=== PATIENT | female | born 1975 | race Caucasian/White ===

== ENCOUNTER 2016-07-12 13:17 | Inpatient (IN) ==
[2016-07-12 13:36] LABS: MANUAL DIFF NEEDED? NO
[2016-07-12 13:39] LABS: BASO% 0.7 % (0.0-0.8); EOS# 0.15 X1000 (0.0-0.7); EOS% 1.4 % (0.0-10.0); HEMATOCRIT 32.8 % (37.0-47.0); HEMOGLOBIN 11.4 g/dL (12.0-16.0); IMM GRAN# 0.04 X1000 (0.0-0.04); IMM GRAN% 0.4 % (0.0-0.5); LYMPH# 2.52 X1000 (1.2-3.4); LYMPH% 23.6 % (20.5-51.1); MCH 28.3 PG (27-31); MCHC 34.8 g/dL (33-37); MCV 81.4 FL (81-99); MONO# 1.27 X1000 (0.11-0.59); MONO% 11.9 % (1.7-9.3); MPV 9.2 FL (7.4-10.4); PLT 528 X1000 (130-400); RBC 4.03 XMIL (4.2-5.4)
--- NOTE | 2016-07-12 13:40 | EKG Report ---
Test Performed on : 07/12/2016 1:23:16 PM Test Reason : AMS Blood Pressure : / mmHG Vent. Rate : 130 BPM Atrial Rate : 130 BPM P-R Int : 140 ms QRS Dur : 082 ms QT Int : 344 ms P-R-T Axes : 071 069 049 degrees QTc Int : 506 ms Sinus tachycardia. with premature supraventricular complexes. Possible Left atrial enlargement Borderline ECG When compared with ECG of 17-MAR-2016 22:04, premature supraventricular complexes. are now present QRS axis shifted left Criteria for Lateral infarct are no longer present Non-specific change in ST segment in Inferior leads Nonspecific T wave abnormality no longer evident in Anterolateral leads Unconfirmed Result
[2016-07-12 13:44] LABS: BE 4.2 mmoll (-3.0-3.0); BLOOD TYPE ARTERIAL; DRAW SITE R RADIAL; METHB 1.2 % (0.0-1.5); O2(CT) 15.4 mL/dL (15.0-23.0); PCO2(98.6) 40 mmHg (35-45); PO2(98.6) 72 mmHg (60-100); SAMPLE BLOOD; SAO2 97.2 % (95.0-100.0); THB 12.1 g/dL (11.5-17.4); pH(98.6) 7.46 (7.35-7.45)
[2016-07-12 13:46] LABS: ALLEN TEST YES; MODALITY ROOM AIR
[2016-07-12] MEDS ORDERED: NS 1,000 ML ONE (13:52)
[2016-07-12] MEDS ORDERED: TYLENOL ONE (13:53)
[2016-07-12] MEDS ORDERED: NS 1,000 ML IV ONE ×2 (13:56→18:02)
[2016-07-12] MEDS ORDERED: TYLENOL PO ONE (14:00)
[2016-07-12 14:02] LABS: INR 0.94 (0.86-1.15); PROTIME 12.9 Seconds (12.1-15.5)
[2016-07-12 14:03] LABS: PTT PL 32.9 Seconds (22.6-43.9)
[2016-07-12 14:14] LABS: AGAP 12; ALBUMIN 3.6 g/dL (3.5-5.0); ALKALINE PHOSPHATASE 123 U/L (32-104); BUN 9 mg/dL (8-22); CHLORIDE 85 mmol/L (98-107); CK PROFILE 472 U/L (24-173); COSMO 248; GOT 26 U/L (10-30); GPT 13 U/L (10-36); POTASSIUM 2.9 mmol/L (3.5-5.1); SODIUM 121 mmol/L (136-145); TCO2 24 mmol/L (25-35); TOTAL PROTEIN 6.7 g/dL (6.3-8.3)
[2016-07-12 14:26] LABS: URINE CULTURE PL NEEDED? NO
[2016-07-12 14:36] LABS: BILIRUBIN URINE NEGATIVE (NEGATIVE); BLOOD URINE 4+ (NEGATIVE); CLARITY CLEAR (CLEAR); COLOR YELLOW; GLUCOSE URINE NEGATIVE (NEGATIVE); LEUKOCYTES URINE NEGATIVE (NEGATIVE); NITRITE URINE NEGATIVE (NEGATIVE); PROTEIN URINE 1+(30 mg/dL) mg/dL (NEGATIVE); UROBILINOGEN URINE NORMAL
[2016-07-12 14:36] LABS: CK INDEX 3.7 (0.0-2.5); CK-MB 17.64 ng/mL (0.0-5.0)
[2016-07-12 14:40] LABS: UR AMPHETAMINES QUAL NONE DETECTED (NONE DETECT); UR BARBITUATES QUAL NONE DETECTED (NONE DETECT); UR BENZODIAZEPIN QUAL PRESUMPTIVE POSITIVE (NONE DETECT); UR CANNABINOIDS QUAL NONE DETECTED (NONE DETECT); UR COCAINE QUAL NONE DETECTED (NONE DETECT); UR MDMA QUAL NONE DETECTED (NONE DETECT); UR METHADONE QUAL NONE DETECTED (NONE DETECT); UR METHAMPHETAMINE QUAL NONE DETECTED (NONE DETECT); UR OPIATES QUAL PRESUMPTIVE POSITIVE (NONE DETECT); UR OXYCODONE QUAL NONE DETECTED (NONE DETECT); UR PCP QUAL NONE DETECTED (NONE DETECT); UR TCA QUAL NONE DETECTED (NONE DETECT)
[2016-07-12] MEDS ORDERED: ATIVAN IV ONE (14:40)
[2016-07-12 14:47] LABS: URINE RBC <10 /HPF (<10); URINE SOURCE CATH
--- NOTE | 2016-07-12 14:49 | Diag Imaging Result Document ---
PROCEDURE NAME: CHEST-PORTABLE - 07/12/2016 PORTABLE CHEST X-RAY: COMPARISON: 03/18/2016. FINDINGS: Stable surgical clips in the left axilla. The lungs are clear. Heart size is normal. No pneumothorax or pleural effusion. IMPRESSION: No acute disease.
--- NOTE | 2016-07-12 16:41 | EKG Report ---
Test Performed on : 07/12/2016 4:36:58 PM Test Reason : CP Blood Pressure : / mmHG Vent. Rate : 091 BPM Atrial Rate : 091 BPM P-R Int : 132 ms QRS Dur : 082 ms QT Int : 388 ms P-R-T Axes : 055 022 036 degrees QTc Int : 477 ms Normal sinus rhythm. Normal ECG When compared with ECG of 12-JUL-2016 13:23, (Unconfirmed) premature supraventricular complexes. are no longer present Unconfirmed Result
[2016-07-12 17:24] LABS: CK INDEX 3.6 (0.0-2.5); CK-MB 13.15 ng/mL (0.0-5.0)
[2016-07-12 21:48] LABS: CK INDEX 3.8 (0.0-2.5); CK-MB 11.71 ng/mL (0.0-5.0)
[2016-07-13] MEDS: XANAX PO SCH ×5 (01:25→22:46)
[2016-07-13] MEDS: NORCO-10 PO SCH ×3 (01:25→20:07)
[2016-07-13] MEDS: PRILOSEC PO SCH ×2 (06:21→09:22)
[2016-07-13] MEDS ORDERED: SYNTHROID PO SCH (07:00)
[2016-07-13 08:27] LABS: HEMATOCRIT 32.2 % (37.0-47.0); HEMOGLOBIN 10.7 g/dL (12.0-16.0); MCH 27.6 PG (27-31); MCHC 33.2 g/dL (33-37); MCV 83.2 FL (81-99); MPV 8.9 FL (7.4-10.4); RBC 3.87 XMIL (4.2-5.4)
[2016-07-13 08:51] LABS: AGAP 9; ALBUMIN 3.3 g/dL (3.5-5.0); ALKALINE PHOSPHATASE 107 U/L (32-104); BUN 4 mg/dL (8-22); CALCIUM 8.9 mg/dL (8.8-10.2); CHLORIDE 91 mmol/L (98-107); COSMO 252; GOT 17 U/L (10-30); GPT 11 U/L (10-36); HDL 67 mg/dL (45-65); LDL 83 mg/dL; MAGNESIUM 1.6 mg/dL (1.5-2.7); POTASSIUM 3.7 mmol/L (3.5-5.1); SODIUM 127 mmol/L (136-145); TCO2 26 mmol/L (25-35); TOTAL PROTEIN 6.1 g/dL (6.3-8.3); TRIGLYCERIDES 67 mg/dL (35-135); VLDL 13 mg/dL
[2016-07-13] MEDS ORDERED: NUVIGIL PO SCH ×2 (09:00)
[2016-07-13] MEDS ORDERED: VYVANSE PO SCH ×2 (09:00)
[2016-07-13] MEDS ORDERED: SOMA PO SCH (09:00)
[2016-07-13] MEDS: TRILEPTAL PO SCH ×2 (09:21→20:08)
[2016-07-13] MEDS: PROZAC PO SCH (09:21)
[2016-07-13] MEDS: LIORESAL PO SCH ×4 (09:22→20:07)
[2016-07-13] MEDS: SYNTHROID PO SCH (10:12)
--- NOTE | 2016-07-13 10:57 | HISTORY AND PHYSICAL ---
PRIMARY CARE PHYSICIAN: CHINTAN Richards, at [facility]. CHIEF COMPLAINT: She initially called EMS with complaints of her toe being black and burning in her chest. HISTORY OF PRESENTING ILLNESS: This is a 41-year-old female who called EMS to bring her to the emergency room yesterday because her toe nail was black. She had it wrapped in some Cling wrap. When they removed the wrap from her toe, they found black toenail Lebanese on her toe. She was noted to have rapid speech, was constantly moving, and stated she was having some burning in her chest. This has been a chronic problem for her for quite a while. Her laboratory data showed a sodium of 121, potassium 2.9. Her creatine kinase was 427 with a CK-MB of 17.64 with a negative troponin of 0.010. Her chest x-ray showed no acute disease. EKG showed sinus tachycardia at 130. So, she was admitted for further evaluation and treatment. PAST MEDICAL HISTORY: Hypertension, MS, anxiety, depression, breast cancer, and legally blind. PAST SURGICAL HISTORY: Bilateral mastectomy, hysterectomy, appendectomy, and a cholecystectomy. FAMILY HISTORY: Breast cancer in her mom. SOCIAL HISTORY: She currently lives with family. She smokes a half a pack of cigarettes a day and denied any alcohol or illicit drug use. ALLERGIES: Gabapentin, Toradol, Levaquin, penicillin, pregabalin, tramadol, and divalproex sodium. HOME MEDICATIONS: 1. Xanax 0.5 mg 1 p.o. t.i.d. 2. Armodafinil 250 mg 1 p.o. daily. 3. Baclofen 20 mg 1 p.o. 4 times daily. 4. Soma 350 mg tablet p.o. daily. 5. Fluoxetine 40 mg 1 p.o. daily. 6. Hydrocodone 10 one p.o. b.i.d. 7. Synthroid 50 mcg 1 tablet daily. 8. Vyvanse 40 mg p.o. daily. 9. Morphine sulfate 100 mg p.o. b.i.d. 10. Ox carbamazepine 600 mg p.o. b.i.d. 11. Pantoprazole 40 mg p.o. daily. At this time, we will hold her Nuvigil and Vyvanse. LABORATORY DATA: White blood cell count of 10.70, hemoglobin 11.4, hematocrit 32.8, platelets 528,000. PT and INR of 12.9 and 0.94. ABG with a pH of 7.46, pCO2 of 40, PO2 of 70, bicarb 28. Sodium of 121, potassium 2.9, chloride 85, CO2 of 24. BUN of 9, creatinine 0.4, glucose was 188. Creatine kinase of 472 with a CK-MB of 17.64 with a negative troponin of 0.010. Repeat showed a creatine kinase of 366 with a CK-MB of 13.5, troponin less than 0.010. This a.m. labs show a sodium up to 127, potassium at 3.7, chloride 91. Creatine kinase was 311 with a CK-MB of 11.71 with still a negative troponin of 0.010. Urinalysis showed 2+ bacteria but, otherwise, negative. Urine drug screen was presumptive positive for opioids and benzodiazepines. Plasma alcohol level showed none detected. Influenza A and B are both negative. Chest x-ray showed no acute disease. EKG initial showed sinus tachycardia with premature supraventricular complexes at 130. Repeat showed a normal sinus rhythm at 91. She denied any fever, chills, blurred vision, dizziness. She was positive for some burning in her chest. She denied any cough, shortness of breath. She denied any abdominal pain, constipation, diarrhea, burning, or hurting with urination. PHYSICAL EXAMINATION: VITAL SIGNS: On arrival, vital signs showed a temperature of 100.8 degrees, pulse was 140, respirations 22, blood pressure was 147/102, saturating 99% on room air. This a.m., she is noted to have a temperature of 98.3 degrees, pulse 86, respirations 20, blood pressure 149/90, saturating 100% on room air. GENERAL: This is a 41-year-old female who is answering questions appropriately. HEENT: Normocephalic, atraumatic. Pupils are equal, round, reactive to light. Extraocular movements are intact. Oropharynx and nares are clear. NECK: Supple. LUNGS: Clear to auscultation bilaterally with equal lung expansion and chest wall movement. HEART: With regular rate and rhythm. No murmurs, rubs, or gallops. ABDOMEN: Soft, nontender, nondistended. Bowel sounds are present x4 quadrants. EXTREMITIES: No clubbing, cyanosis, or edema. NEUROLOGICAL: The cranial nerves 2-12 are grossly intact. ASSESSMENT: 1. Hyponatremia. 2. Hypokalemia. 3. Rhabdomyolysis. 4. Tobacco abuse. 5. Hypertension. 6. Multiple Sclerosis. PLAN: She was admitted to the medical unit at [facility], placed on telemetry, O2 per protocol. Healthy heart diet. We will place her on normal saline at 125 mL an hour. Continue home medications as previously identified. Holding the ones that we listed, as those can be some of the medications that can drop her sodium, even though it is improving at this time, and we will recheck a cardiac profile this a.m. We will give her a nicotine patch daily and recheck labs in the a.m. Dictated by CHINTAN Penaloza for Nik Casiano MD cc: CHINTAN Penaloza MD Kim Harbin, CRNP
[2016-07-13] MEDS: MORPHINE SULFATE PO SCH (11:20)
[2016-07-13] MEDS: NICODERM PATCH TD SCH (13:00)
[2016-07-13] MEDS ORDERED: NS 1,000 ML ONE (17:39)
[2016-07-13] MEDS: NS 1,000 ML IV SCH (18:12)
[2016-07-13] MEDS: SOMA PO SCH (20:08)
--- NOTE | 2016-07-14 01:10 | PROGRESS NOTE ---
DATE: 07/13/2016 SUBJECTIVE: The patient notes that she is feeling a little bit better this morning. She denies any real chest pains or palpitations currently, although, states that she does not feel well. I is actually very difficult to obtain when the pain really started. OBJECTIVE: Vital Signs: Temperature 98, pulse 86, respiratory rate 18, BP 151/86, sat 100% on room air. General: Patient awake alert, oriented. She is in no respiratory distress. Speech is regular. HEENT: Normocephalic, atraumatic. Neck: Supple. Cardiovascular: Regular rate. Chest: Relatively clear. LABS: CBC essentially normal. Carboxyhemoglobin yesterday, ABG is 5.7. ASSESSMENT: 1. Hyponatremia, slowly improving. Sodium was 121 yesterday, currently 127. 2. Hypokalemia, resolved. 3. Hypothyroidism. 4. Rhabdomyolysis, resolved. Initial CPK was 472, currently is 107. 5. Mild protein calorie malnutrition. 6. Chronic tobacco abuse. 7. Hypertension. 8. Multiple sclerosis. PLAN: We will recheck labs in the morning. Should her sodium continue to improve, then she certainly could be discharged home. If not, her Prozac may need to be stopped, as this certainly could drop her sodium, as could her Trileptal. We will recheck in the morning, hopefully discharge home. cc: Nik Casiano MD
[2016-07-14] MEDS: MORPHINE SULFATE PO SCH (02:38)
[2016-07-14] MEDS: SYNTHROID PO SCH (06:25)
[2016-07-14] MEDS: PRILOSEC PO SCH (06:25)
[2016-07-14] MEDS: XANAX PO SCH ×3 (06:25→23:15)
[2016-07-14 06:34] LABS: MANUAL DIFF NEEDED? NO
[2016-07-14 06:47] LABS: BASO% 1.1 % (0.0-0.8); EOS% 2.8 % (0.0-10.0); HEMATOCRIT 30.9 % (37.0-47.0); HEMOGLOBIN 10.2 g/dL (12.0-16.0); IMM GRAN# 0.02 X1000 (0.0-0.04); IMM GRAN% 0.3 % (0.0-0.5); LYMPH% 34.4 % (20.5-51.1); MCH 27.4 PG (27-31); MCV 83.1 FL (81-99); MONO# 0.58 X1000 (0.11-0.59); MPV 8.9 FL (7.4-10.4); NEUT% 53.4 % (42.2-75.2); PLT 457 X1000 (130-400); RBC 3.72 XMIL (4.2-5.4)
[2016-07-14 07:24] LABS: AGAP 16; ALKALINE PHOSPHATASE 98 U/L (32-104); BUN 3 mg/dL (8-22); CALCIUM 8.2 mg/dL (8.8-10.2); CHLORIDE 88 mmol/L (98-107); COSMO 249; GOT 13 U/L (10-30); GPT 10 U/L (10-36); POTASSIUM 3.1 mmol/L (3.5-5.1); SODIUM 125 mmol/L (136-145); TCO2 21 mmol/L (25-35); TOTAL BILIRUBIN < 0.15 mg/dL (0.20-1.00); TOTAL PROTEIN 5.6 g/dL (6.3-8.3)
[2016-07-14] MEDS: NICODERM PATCH TD SCH (08:28)
[2016-07-14] MEDS: PROZAC PO SCH (08:28)
[2016-07-14] MEDS: NORCO-10 PO SCH ×2 (08:29→20:00)
[2016-07-14] MEDS: TRILEPTAL PO SCH (08:29)
[2016-07-14] MEDS: MS CONTIN PO SCH ×2 (08:29→20:00)
[2016-07-14] MEDS: LIORESAL PO SCH ×4 (08:29→20:00)
--- NOTE | 2016-07-14 13:13 | Diag Imaging Result Document ---
PROCEDURE NAME: MYOCARDIAL PERFU SCAN, REST - 07/13/2016 INDICATION: Chest pain. PROCEDURE PERFORMED: Rest myocardial perfusion imaging with no gating. PROCEDURE IN DETAIL: Ms. Escobedo was brought to the nuclear laboratory and had a resting study with injection of 11.5 mCi of technetium-99m sestamibi with the usual imaging protocol utilized. FINDINGS: This study seems to show reasonable normal homogeneous uptake of radiotracer throughout the myocardial segments. There is some interference in the inferior wall from gut uptake, making interpretation of this area difficult. Notably, there was no gating performed on this study. cc: MD Irais Daily CRNP
--- NOTE | 2016-07-14 14:51 | PROGRESS NOTE ---
DATE: 07/14/2016 Today Ms. Escobedo referred to be doing okay. She still continues to have this neuropathic pain. According to her, it is from her multiple sclerosis. OBJECTIVE: Vital Signs: Stable. Blood pressure is 147/94, pulse is 82, respirations 20, temperature 97.4 degrees. General: Ms. Escobedo is a 41-year-old female. She was in bed. Did not seem to be in any distress. HEENT: Mucosa is slightly dry. Anicteric. Acyanotic. Neck: Supple. Chest: Clear. Cardiovascular: Regular rate and rhythm. Abdomen: Soft. FIRE LOOKOUT: Patient was alert and oriented. Extremities: No pedal edema. LABORATORY DATA: WBC 7.327, hemoglobin is 10.2, platelet count of 457,000. Chemistry: Sodium is 125 potassium is 3.1, chloride is 88, bicarb is 21. ASSESSMENT: 1. Hyponatremia. Currently I think patient is slightly dehydrated but however looking back at her history she definitely has persistent hyponatremia in the past which I think is related to some of her medications. I have therefore gone ahead and discontinued the oxcarbazepine and also the fluoxetine which are notorious for causing hyponatremia. Patient will continue with the Soma and the baclofen for muscle discomfort and neuropathic pain. 2. Rhabdomyolysis improved. 3. Chronic tobacco abuse. Patient has been counseled. 4. History of multiple sclerosis. Patient follows up with Dr. Flood. 5. Hypothyroidism. She is on Synthroid. We will check on her TSH to see where we are. So in general I think Ms. Escobedo is stable. We are going to do the urine sodium and urine osmolarity to have an idea what is going on with her sodium status. We will continue with the current IV fluids because I think she is slightly dry and I have discontinued the fluoxetine and oxcarbazepine because I think they are confounding to her sodium problems. We will recheck on her sodium tomorrow morning, the TSH tomorrow morning. Hopefully we might be will be able to discharge her tomorrow. cc: Ziggy Lopez MD
[2016-07-14] MEDS: NS 1,000 ML IV SCH (18:49)
[2016-07-14] MEDS: SOMA PO SCH (20:00)
[2016-07-14] MEDS: ZOFRAN IV PRN (20:24)
[2016-07-15] MEDS: NS 1,000 ML IV SCH ×5 (04:42→08:48)
[2016-07-15] MEDS: PRILOSEC PO SCH (06:11)
[2016-07-15] MEDS: XANAX PO SCH (06:11)
[2016-07-15] MEDS: SYNTHROID PO SCH (06:11)
[2016-07-15] MEDS: ZOFRAN IV PRN ×2 (06:15→13:07)
[2016-07-15 06:23] LABS: MANUAL DIFF NEEDED? NO
[2016-07-15 06:36] LABS: BASO% 1.6 % (0.0-0.8); EOS# 0.27 X1000 (0.0-0.7); EOS% 3.6 % (0.0-10.0); HEMATOCRIT 34.5 % (37.0-47.0); IMM GRAN# 0.03 X1000 (0.0-0.04); IMM GRAN% 0.4 % (0.0-0.5); LYMPH# 3.23 X1000 (1.2-3.4); LYMPH% 42.8 % (20.5-51.1); MCH 27.1 PG (27-31); MCHC 31.9 g/dL (33-37); MONO# 0.61 X1000 (0.11-0.59); MONO% 8.1 % (1.7-9.3); NEUT% 43.5 % (42.2-75.2); PLT 499 X1000 (130-400); RBC 4.06 XMIL (4.2-5.4)
[2016-07-15 07:06] LABS: AGAP 10; BUN 3 mg/dL (8-22); CALCIUM 8.6 mg/dL (8.8-10.2); CHLORIDE 97 mmol/L (98-107); COSMO 265; POTASSIUM 4.2 mmol/L (3.5-5.1); SODIUM 133 mmol/L (136-145); TCO2 27 mmol/L (25-35)
[2016-07-15 07:22] VITALS: BP 142/81
[2016-07-15] MEDS: MS CONTIN PO SCH (08:48)
[2016-07-15] MEDS: NORCO-10 PO SCH (08:48)
[2016-07-15] MEDS: NICODERM PATCH TD SCH (08:49)
[2016-07-15] MEDS: LIORESAL PO SCH ×2 (08:49→13:07)
[2016-07-15] MEDS ORDERED: SYNTHROID PO ONE (09:06)
--- NOTE | 2016-07-16 06:38 | DISCHARGE SUMMARY ---
ADMISSION DATE: 07/12/2016 DISCHARGE DATE: 07/15/2016 PRIMARY CARE PHYSICIAN: CHINTAN Richards at [facility]. ADMISSION DIAGNOSES: 1. Hyponatremia. 2. Hypokalemia. 3. Rhabdomyolysis. 4. Tobacco abuse. 5. Hypertension. 6. Multiple sclerosis. DISCHARGE DIAGNOSES: 1. Hyponatremia improved. 2. Hypokalemia a resolved. 3. Rhabdomyolysis resolved. 4. Tobacco abuse. 5. Hypertension. 6. Multiple sclerosis. SUMMARY OF FINDINGS: This is a 41-year-old female who initially came to the emergency room after she called EMS because her toenail was black. When she arrived to the emergency room she had it wrapped in some [place] wrap. When they removed the wrap from her toe there was found black toenail jamaican on her toe. Her sodium level when she arrived was 121 with a potassium of 2.9, creatine kinase of 427 with CK-MB of 17.64, negative troponin. EKG showed sinus tachycardia at 130. We held her Nuvigil and Vyvanse and gave her IV hydration. She has corrected her sodium and her potassium was supplemented. We did do a myocardial perfusion scan on 07/13/2016 that showed a normal homogeneous uptake of radiotracer throughout the myocardial segments, and there was no gating performed on this study, and so is now felt that she can be safely discharged home. She is noted also to have an increased TSH of 7.41 so she was placed on the following discharge medications. DISCHARGE MEDICATIONS: 1. Xanax 0.5 mg p.o. t.i.d. 2. Baclofen 20 mg 1 p.o. 4 times daily. 3. Soma 350 mg p.o. daily. 4. [place] 10 one p.o. b.i.d. 5. Synthroid 75 mcg p.o. daily. 6. Morphine sulfate 100 mg p.o. b.i.d. 7. Pantoprazole 40 mg p.o. daily. 8. Fluoxetine 40 mg p.o. daily. FOLLOWUP: She will need to follow up with her primary care physician in 1-2 weeks. All discharge instructions have been reviewed with the patient. She verbalizes understanding. TIME SPENT ON DISCHARGE: 35 minutes. Dictated by CHINTAN Penaloza for Ziggy Lopez MD cc: CHINTAN Penaloza MD Kim Harbin, CRNP
[2016-07-16] MEDS ORDERED: SYNTHROID PO SCH (07:00)
--- NOTE | 2016-07-17 17:39 | PROVIDER DOCUMENTATION ---
This chart was entered by Gisela Sims Scribe, acting as scribe for Chandrakant Tony MD. HPI-General Adult - General Chief Complaint: General Adult Stated Complaint: fever, ams Time Seen by Provider: 07/12/16 13:24 Source: patient Allergies/Adverse Reactions: Patient Allergies Allergy/AdvReac Type Severity Reaction Status Date / Time gabapentin [From Neurontin] Allergy Severe ANAPHYLAXIS Verified 03/08/16 21:54 ketorolac tromethamine * Allergy Severe HIVES Verified 03/08/16 21:54 [From Toradol] levofloxacin [From Levaquin] Allergy Severe ANAPHYLAXIS Verified 03/08/16 21:54 Penicillins Allergy Severe RASH Verified 03/08/16 21:54 pregabalin [From Lyrica] Allergy Severe ANAPHYLAXIS Verified 03/08/16 21:54 tramadol HCl * [From Ultram] Allergy Severe HIVES Verified 03/08/16 21:54 divalproex sodium Allergy SWELLING Verified 03/08/16 21:54 [From Depakote] Home Medications: Home Medication List Medication Instructions Recorded Confirmed Last Taken Type Alprazolam 1 tab PO TID 07/12/16 07/12/16 Unknown History Armodafinil [Armodafinil] 1 tab PO DAILY 07/12/16 07/12/16 Unknown History Baclofen 1 tab PO 407/12/16 07/12/16 Unknown History Carisoprodol 1 tab PO DAILY 07/12/16 07/12/16 Unknown History Fluoxetine HCl 1 cap PO DAILY 07/12/16 07/12/16 Unknown History Hydrocodone Bit/Acetaminophen 1 tab PO BID 07/12/16 07/12/16 Unknown History [Hydrocodon-Acetaminophn 10-325] Lisdexamfetamine Dimesylate 1 cap PO DAILY 07/12/16 07/12/16 Unknown History [Vyvanse] Morphine Sulfate [Morphine Sulfate 1 tab PO BID 07/12/16 07/12/16 Unknown History ER] Pantoprazole Sodium 1 tab PO DAILY@0700 07/12/16 07/12/16 Unknown History Levothyroxine [Synthroid] 75 microgm PO DAILY@0700 #60 tablet 07/15/16 Unknown Rx - History of Present Illness -Gen Adult Nature of Presenting Problems: 41 yo F presents to the ER via EMS after calling EMS because her "toenail was black". Pt arrives with toe wrapped in nichelle, removed the wrap and the toe was painted with black nail paraguayan. Pt has a rapid speech pattern and constantly moving, normal baseline per sister. Upon arrival pt complains of burning sensation in chest. Denies etoh or drug use. Review of Systems - Adult - REVIEW OF SYSTEMS - ADULT Constitutional: reports: fever. denies: chills Eyes: reports: no symptoms reported Ears, Nose, Mouth & Throat: reports: no symptoms reported Cardiovascular: denies: chest pain, palpitations Respiratory: denies: cough, shortness of breath Gastrointestinal: reports: no symptoms reported Genitourinary: reports: no symptoms reported Musculoskeletal: reports: no symptoms reported Integumentary: reports: no symptoms reported Neurological: reports: no symptoms reported Psychiatric: reports: no symptoms reported Endocrine: reports: no symptoms reported Hematologic/Lymphatic: reports: no symptoms reported Allergic/Immunologic: reports: no symptoms reported All Other Systems: Reviewed and Negative Past History - Adult - PAST MEDICAL HISTORY-ADULT Review of Records: reports: Nursing Assessment Review, Medications Reviewed Neurological: reports: Multiple Sclerosis Psychiatric: reports: anxiety, depression - IMMUNIZATION STATUS Childhood Immunizations: UTD, See Nurse Assessment Flu Vaccine: See Nurse Assessment - SOCIAL HISTORY Smoking: cigarettes Physical Exam-General - PHYSICAL EXAM-ADULT Initial Vital Signs Reviewed: Yes - CONSTITUTIONAL General Appearance: alert, mild distress, anxious - EYES Eyes: PERRL/EOMI, pink conjunctivae - HEAD, EARS, NOSE, MOUTH & THROAT HENMT: normocephalic/atraumatic, normal ENT inspection - NECK Neck: supple, normal inspection - RESPIRATORY Respiratory: no respiratory distress, no accessory muscle use - CARDIOVASCULAR Cardiovascular: normal peripheral pulses, regular rate, rhythm - MUSCULOSKELETAL Back Exam: no CVA tenderness, no vertebral tenderness Extremity: normal range of motion, non-tender, normal gait, normal inspection, other (toenail was painted black) - SKIN Integumentary: normal color, warm/dry - NEUROLOGIC Neurologic: grossly normal, no motor/sensory deficits - PSYCHIATRIC Psych/Mental Status: normal mood/affect, normal thought content, normal thought process, oriented x 3 Progress - PLAN OF CARE/RESULTS Progress/Plan/Lab Results: Vital Signs - 8 hr 07/12/16 13:18 Temperature 100.8 F H Pulse Rate 140 H Respiratory Rate 22 Blood Pressure 147/102 O2 Sat by Pulse Oximetry 99 Orders Category Date Time Status Cardiac Monitoring DIRECTED Care 07/12/16 13:23 Active Finger Stick Blood Sugar (ED) DIRECTED Care 07/12/16 13:23 Active Saline Loc NOW Care 07/12/16 13:23 Active CHEST-PORTABLE [RAD] Stat Exams 07/12/16 13:23 Ordered ABG [RESP] Routine Lab 07/12/16 13:23 Ordered ALCOHOL BLOOD Stat Lab 07/12/16 13:23 Ordered CBC WITH ELECTRONIC DIFF [HEME] Stat Lab 07/12/16 13:23 Ordered CK PROFILE [SP CHEM] Stat Lab 07/12/16 13:23 Ordered COMPREHENSIVE METABOLIC PANEL [CHEM] Stat Lab 07/12/16 13:23 Ordered Flu [INFLUENZA SCREEN PL] Stat Lab 07/12/16 13:24 Uncollected LACTATE, PLASMA [CHEM] Stat Lab 07/12/16 13:[address]IME WITH INR [address] [COAG] Stat Lab 07/12/16 13:[address] [COAG] Stat Lab 07/12/16 13:23 Ordered TROPONIN T Stat Lab 07/12/16 13:[address] W/POSS RFLX CULT [URINALYSIS] Stat Lab 07/12/16 13:23 Uncollected URINE DRUG SCREEN PL Stat Lab 07/12/16 13:23 Uncollected Pulse Oximetry Stat Oth 07/12/16 13:23 Active EKG [EKG] Stat Ther 07/12/16 13:23 Ordered Result Diagrams: 07/15/16 05:40 07/15/16 05:40 - EKG 1 Time of EKG reading by physician:: 13:23 EKG Read and Signed by:: Chandrakant Tony EKG Interpretation (*Must complete 3 of following elements*): Abnormal Rate: 130 Rhythm: sinus tach with premature supraventricular complexes [place]: normal QRS: normal LA Interval: normal ST Wave: normal Comments: possible left atrial enlargement - XRAY 1 XRAY Study: Chest Impression: Normal (NAD, per radiologist) - CONSULTS/PCP/HOSPITALIST Notification #1 *Consult/PCP/Hospitalist*: Dr. Dahl Time Discussed: 17:45 #2 Consult: Dr. Casiano Time Discussed: 17:57 Consult Disposition: Admit Departure - Departure Time of Disposition Decision: 18:01 DIAGNOSIS: Atypical chest pain, Hyponatremia Disposition: ADMITTED INPATIENT 09 Certified Medical Emergency: Emergent Condition: Stable This chart was documented by the indicated scribe, (Gisela Sims Scribe) and accurately reflects the services I performed and decisions made by me, Chandrakant Tony MD, as attested by the provider's signature.
== END 2016-07-15 14:40 | disposition home or self-care (01) ==
LOC: P.MEDSURG 13:17 → P.ED 13:17 → SUATTDRO 18:28 → OBSVTOIN 18:28
PROVIDERS: ATTEND Internal Medicine

== ENCOUNTER 2016-09-01 00:57 | Inpatient (IN) ==
[2016-09-01 03:38] LABS: BASO% 0.2 % (0.0-0.8); HEMATOCRIT 34.9 % (37.0-47.0); HEMOGLOBIN 12.1 g/dL (12.0-16.0); IMM GRAN% 0.4 % (0.0-0.5); LYMPH# 2.16 X1000 (1.2-3.4); LYMPH% 8.2 % (20.5-51.1); MANUAL DIFF NEEDED? YES; MCH 28.1 PG (27-31); MCHC 34.7 g/dL (33-37); MONO# 1.69 X1000 (0.11-0.59); MONO% 6.4 % (1.7-9.3); MPV 9.2 FL (7.4-10.4); NEUT% 84.8 % (42.2-75.2); PLT 540 X1000 (130-400); RBC 4.31 XMIL (4.2-5.4)
[2016-09-01 03:53] LABS: BANDS 2 % (0-1); LYMPHS 16 % (21-51); MONO 5 % (1-9)
[2016-09-01 03:54] LABS: ALBUMIN 4.6 g/dL (3.5-5.0); CALCIUM 9.6 mg/dL (8.8-10.2); POTASSIUM 4.7 mmol/L (3.5-5.1); TOTAL BILIRUBIN 0.3 mg/dL (0.20-1.00); TOTAL PROTEIN 7.5 g/dL (6.3-8.3)
[2016-09-01 04:32] LABS: UR AMPHETAMINES QUAL PRESUMPTIVE POSITIVE (NONE DETECT); UR BARBITUATES QUAL NONE DETECTED (NONE DETECT); UR BENZODIAZEPIN QUAL NONE DETECTED (NONE DETECT); UR CANNABINOIDS QUAL NONE DETECTED (NONE DETECT); UR COCAINE QUAL NONE DETECTED (NONE DETECT); UR MDMA QUAL NONE DETECTED (NONE DETECT); UR METHADONE QUAL NONE DETECTED (NONE DETECT); UR METHAMPHETAMINE QUAL NONE DETECTED (NONE DETECT); UR OPIATES QUAL PRESUMPTIVE POSITIVE (NONE DETECT); UR OXYCODONE QUAL PRESUMPTIVE POSITIVE (NONE DETECT); UR PCP QUAL NONE DETECTED (NONE DETECT); UR TCA QUAL NONE DETECTED (NONE DETECT)
--- NOTE | 2016-09-01 05:53 | Diag Imaging Result Doc PS360 ---
EXAM: CHEST-2 VIEWS HISTORY: elevated temp TECHNIQUE: COMPARISON: None. FINDINGS: The lungs are hyperexpanded. The heart is not enlarged. The pulmonary vessels are small. No pleural effusions. There are no infiltrates. Moderate scoliosis. IMPRESSION: 1.No pneumonia 2.I believe the patient has emphysema. Electronically signed by Kory Mcbride 09/01/2016 5:51 AM
[2016-09-01 07:00] LABS: URINE CULTURE PL NEEDED? NO
[2016-09-01 07:05] LABS: BILIRUBIN URINE NEGATIVE (NEGATIVE); BLOOD URINE 1+ (NEGATIVE); CLARITY CLEAR (CLEAR); COLOR YELLOW; GLUCOSE URINE NEGATIVE (NEGATIVE); LEUKOCYTES URINE NEGATIVE (NEGATIVE); NITRITE URINE NEGATIVE (NEGATIVE); PROTEIN URINE 1+(30 mg/dL) mg/dL (NEGATIVE); UROBILINOGEN URINE NORMAL
[2016-09-01 07:17] LABS: URINE EPITHELIAL CELLS <10 /HPF (<10); URINE RBC <10 /HPF (<10); URINE SOURCE CATH; URINE WBC <10 /HPF (<10)
--- NOTE | 2016-09-01 08:36 | Diag Imaging Result Doc PS360 ---
EXAM: HEAD W/O CONTRAST HISTORY: AMS TECHNIQUE: Dose reduction protocol COMPARISON: 03/17/2016 FINDINGS: No parenchymal hemorrhage. No epidural or subdural hematoma. No subarachnoid hemorrhage. No hydrocephalus. No mass identified on this noncontrasted exam. No sinus opacification. IMPRESSION: No hemorrhage. Negative brain CT without contrast. Electronically signed by Kory Mcbride 09/01/2016 8:33 AM
--- NOTE | 2016-09-01 09:01 | PROVIDER DOCUMENTATION ---
This chart was entered by Tiffanie Enriquez Scribe, acting as scribe for Garrison Peacock MD. HPI-General Adult - General Chief Complaint: Extremity Pain Stated Complaint: VOMITING/PAIN ALL OVER Time Seen by Provider: 09/01/16 02:49 Source: patient, family Allergies/Adverse Reactions: Patient Allergies Allergy/AdvReac Type Severity Reaction Status Date / Time gabapentin [From Neurontin] Allergy Severe ANAPHYLAXIS Verified 03/08/16 21:54 ketorolac tromethamine * Allergy Severe HIVES Verified 03/08/16 21:54 [From Toradol] levofloxacin [From Levaquin] Allergy Severe ANAPHYLAXIS Verified 03/08/16 21:54 Penicillins Allergy Severe RASH Verified 03/08/16 21:54 pregabalin [From Lyrica] Allergy Severe ANAPHYLAXIS Verified 03/08/16 21:54 tramadol HCl * [From Ultram] Allergy Severe HIVES Verified 03/08/16 21:54 divalproex sodium Allergy SWELLING Verified 03/08/16 21:54 [From Depakote] Home Medications: Home Medication List Medication Instructions Recorded Confirmed Last Taken Type Alprazolam 1 tab PO TID 07/12/16 07/12/16 Unknown History Armodafinil [Armodafinil] 1 tab PO DAILY 07/12/16 07/12/16 Unknown History Baclofen 1 tab PO 4XDAY 07/12/16 07/12/16 Unknown History Carisoprodol 1 tab PO DAILY 07/12/16 07/12/16 Unknown History Fluoxetine HCl 1 cap PO DAILY 07/12/16 07/12/16 Unknown History Hydrocodone Bit/Acetaminophen 1 tab PO BID 07/12/16 07/12/16 Unknown History [Hydrocodon-Acetaminophn 10-325] Lisdexamfetamine Dimesylate 1 cap PO DAILY 07/12/16 07/12/16 Unknown History [Vyvanse] Morphine Sulfate [Morphine Sulfate 1 tab PO BID 07/12/16 07/12/16 Unknown History ER] Pantoprazole Sodium 1 tab PO DAILY@0700 07/12/16 07/12/16 Unknown History Levothyroxine [Synthroid] 75 microgm PO DAILY@0700 #60 tablet 07/15/16 Unknown Rx - History of Present Illness -Gen Adult Nature of Presenting Problems: Family states that pt has been talking out of her head and falling a lot. PT states that she feels like her muscles are "having spasms." Family and pt believes that her potassium or sodium is low. Pt states that she has been hearing voices when no one is there. Pt is falling asleep mid-sentence on assessment. Location of Pain/Injury: reports: generalized Pain Radiation: reports: no radiation Quality of Pain: reports: cramping Severity: reports: mild Onset/Duration: reports: 2 days ago Timing: reports: still present Context/Activities at Onset: reports: none Modifying Factors: improves with: nothing Associated Symptoms: reports: muscle aches Similar Symptoms Previously?: No Recently seen or treated by another doctor?: No Review of Systems - Adult - REVIEW OF SYSTEMS - ADULT Constitutional: denies: chills, fever Eyes: reports: no symptoms reported Ears, Nose, Mouth & Throat: reports: no symptoms reported Cardiovascular: reports: no symptoms reported Respiratory: reports: no symptoms reported Gastrointestinal: denies: nausea, vomiting Genitourinary: reports: no symptoms reported Musculoskeletal: reports: muscle aches. denies: muscle weakness Integumentary: denies: skin sores/ulcer, skin thickening Neurological: reports: no symptoms reported Psychiatric: reports: no symptoms reported Endocrine: reports: no symptoms reported Hematologic/Lymphatic: reports: no symptoms reported Allergic/Immunologic: reports: no symptoms reported All Other Systems: Reviewed and Negative Past History - Adult - PAST MEDICAL HISTORY-ADULT Review of Records: reports: Nursing Assessment Review, Medications Reviewed Major Childhood Illnesses: reports: denies history Cardiovascular: reports: denies history Respiratory: reports: other (smoker) Gastrointestinal: reports: denies history Obstetrical/Gynecological: reports: denies history Genitourinary: reports: denies history Musculoskeletal: reports: denies history Neurological: reports: Multiple Sclerosis Psychiatric: reports: anxiety, depression Endocrine/Immune: reports: denies history Other Conditions: reports: denies history - PRIOR SURGERIES/PROCEDURES Surgical/Procedure History: reports: other (none recent) - IMMUNIZATION STATUS Childhood Immunizations: UTD, See Nurse Assessment Flu Vaccine: See Nurse Assessment - FAMILY HISTORY Family History: reviewed, not pertinent - SOCIAL HISTORY Smoking: cigarettes Provider spent 3-5 mins advising pt. on dangers of tobacco.: Discussed manners to quit use, and f/u contacts for add'l counseling. Substance Use: none/never Alcohol Use Frequency: never Physical Exam-General - PHYSICAL EXAM-ADULT Initial Vital Signs Reviewed: Yes - CONSTITUTIONAL General Appearance: lethargic, other (PT falling asleep while talking and grunting) - RESPIRATORY Respiratory: no respiratory distress - CARDIOVASCULAR Cardiovascular: tachycardia - GASTROINTESTINAL (ABDOMEN) Abdominal Exam: non tender, soft - MUSCULOSKELETAL Extremity: other (muscle spasms) - PSYCHIATRIC Psych/Mental Status: other (PT falling asleep while talking and grunting) Progress - PLAN OF CARE/RESULTS Progress/Plan/Lab Results: Vital Signs - 8 hr 09/01/16 01:14 Temperature 98 F Pulse Rate 109 H Respiratory Rate 18 Blood Pressure 103/65 O2 Sat by Pulse Oximetry 100 Result Diagrams: 09/01/16 03:05 09/01/16 03:05 Departure - Departure Time of Disposition Decision: 09:00 DIAGNOSIS: Leukocytosis (leucocytosis), Hyponatremia, Volume depletion, Drug abuse Disposition: ADMITTED INPATIENT 09 Certified Medical Emergency: Emergent Condition: Stable Referrals and Follow-Ups: An James [Primary Care Provider] - - Critical Care Note This patient required my direct & personal management of CC.: Yes Attestation - Physician/ JOHN Attestation The physician spent face to face time with patient:: Yes Advanced Practice Provider documentation review:: The physician spent face to face time with this patient and agrees with all MLP documentation, treatment, and medical decision making by the MLP. See provider notes for further information. This chart was documented by the indicated scribe, (Tiffanie Enriquez Scribe) and accurately reflects the services I performed and decisions made by me, Garrison Peacock MD, as attested by the provider's signature.
[2016-09-01] MEDS ORDERED: ZITHROMAX 500 MG/NS 500 MG/250 ML IVPB IV ONE ×2 (10:15→16:00)
[2016-09-01] MEDS ORDERED: TYLENOL PO PRN (10:51)
[2016-09-01 12:50] LABS: URINE SOURCE CATH
[2016-09-01 13:08] LABS: BILIRUBIN URINE NEGATIVE (NEGATIVE); BLOOD URINE TRACE (NEGATIVE); CLARITY CLEAR (CLEAR); COLOR YELLOW; GLUCOSE URINE NEGATIVE (NEGATIVE); NITRITE URINE NEGATIVE (NEGATIVE); PROTEIN URINE TRACE mg/dL (NEGATIVE); UROBILINOGEN URINE NORMAL
[2016-09-01 13:09] LABS: LEUKOCYTES URINE NEGATIVE (NEGATIVE); URINE MICROSCOPIC NEEDED? YES
[2016-09-01 13:10] LABS: URINE RBC <10 /HPF (<10); URINE WBC <10 /HPF (<10)
[2016-09-01 13:14] LABS: URINE EPITHELIAL CELLS <10 /HPF (<10)
[2016-09-01] MEDS: ZOFRAN IV PRN (13:29)
[2016-09-01] MEDS: LIORESAL PO SCH ×2 (13:30→18:16)
[2016-09-01 14:01] LABS: HEMATOCRIT 36.5 % (37.0-47.0); HEMOGLOBIN 12.8 g/dL (12.0-16.0); MCH 28.5 PG (27-31); MCHC 35.1 g/dL (33-37); MCV 81.3 FL (81-99); MPV 9.1 FL (7.4-10.4); RBC 4.49 XMIL (4.2-5.4)
[2016-09-01 14:06] LABS: AGAP 16; BUN 29 mg/dL (8-22); CALCIUM 9.9 mg/dL (8.8-10.2); CHLORIDE 87 mmol/L (98-107); COSMO 262; POTASSIUM 3.6 mmol/L (3.5-5.1); SODIUM 127 mmol/L (136-145); TCO2 25 mmol/L (25-35)
[2016-09-01] MEDS: XANAX PO SCH ×2 (14:27→21:23)
[2016-09-01] MEDS: TRILEPTAL PO SCH ×2 (14:27→21:24)
[2016-09-01] MEDS: PROZAC PO SCH (14:27)
[2016-09-01] MEDS: NORCO-10 PO PRN (14:27)
--- NOTE | 2016-09-01 15:02 | HISTORY AND PHYSICAL ---
PRIMARY CARE PHYSICIAN: CHINTAN Richards. NEUROLOGIST: Dr. Flood. CHIEF COMPLAINT: Muscle spasms in arms and legs. HISTORY OF PRESENT ILLNESS: This is a 41-year-old female with a history of hypertension, MS, and anxiety, who presented to the emergency room complaining of muscle spasms in her arms and legs, stating that she stopped taking her muscle relaxers and Xanax 3 days ago to prove to her daughter that she was really sick, she was not faking. She states that prior to stopping her muscle relaxers and Xanax, she was having these symptoms. There has been no exacerbation after stopping the medicines. She also states she thinks her sodium and potassium are low. She reports drinking 4 to 5 two liter Pepsi a day, plus other drinks on a regular basis. She was found to have a white count of 26, with a sodium of 126, and a potassium of 4.7, creatinine was 1.5. She was given azithromycin in the emergency room, and admitted for further evaluation and treatment. PAST MEDICAL HISTORY: Hypertension, multiple sclerosis, anxiety, depression, breast cancer, fermin. PAST SURGICAL HISTORY: Bilateral mastectomy, hysterectomy, appendectomy, cholecystectomy. FAMILY HISTORY: Breast cancer in her mom. SOCIAL HISTORY: She lives with her daughter. She smokes half a pack to a pack of cigarettes a day. She denies alcohol or illicit drug use. ALLERGIES: Gabapentin, Levaquin, and Lyrica that cause anaphylaxis. Toradol, tramadol, and penicillin that cause hives and rash. Depakote, which causes swelling. HOME MEDICATIONS: 1. Soma 350 at bedtime. 2. Phenergan 1 p.o. every 6 hours p.r.n. 3. Protonix 40 mg daily. 4. Oxcarbazepine 600 mg b.i.d. 5. Morphine sulfate ER 100 mg b.i.d. 6. Vyvanse 1 capsule daily. 7. Synthroid 75 mcg daily. 8. [place] 10 one tablet b.i.d. p.r.n. 9. Prozac 40 mg daily. 10. Baclofen 1 tablet 4 times a day. 11. Armodafinil daily. 12. Amlodipine/benazepril 10/40 daily. 13. Xanax 1 tablet 3 times a day, 0.5 mg. REVIEW OF SYSTEMS: A 14-point review of systems is discussed with the patient, with pertinent positives being that she denies nausea, vomiting, diarrhea, constipation, black or bloody vomitus, black or bloody stools, any chest pain, palpitations, dizziness, syncope, hematuria, dysuria, frequency, urgency, any cough, fever, chills. PHYSICAL EXAMINATION: GENERAL: This is a 41-year-old female who is sitting in the bed in no distress. She is noted to have frequent movements to her arms and legs, stating that she is having muscle spasms. These can be stopped and restarted without difficulty. VITAL SIGNS: Blood pressure is 129/73 with a heart rate of 76, respirations are 21, temperature is 97.8 degrees oral, with room air saturation of 100%. HEENT: Head is normocephalic, atraumatic. Pupils equal, round, reactive to light. EOMs are intact. Sclerae anicteric. Mucous membranes are moist. NECK: Supple with trachea midline. CARDIOVASCULAR: Regular rate and rhythm. S1 and S2 are appreciated. PULMONARY: Breath sounds are clear with no increased work of breathing noted. GASTROINTESTINAL: Abdomen is soft, nontender, nondistended with bowel sounds in all 4 quadrants. BACK: No CVAT. No spine tenderness. MUSCULOSKELETAL: Good range of motion of joints. NEUROLOGIC: She is alert and oriented. She follows commands. Cranial nerves II through XII are grossly intact. DIAGNOSTICS: WBC is 26.26 with hemoglobin 12.1, hematocrit 34.9, and platelets of 540,000. Sodium is 126, potassium 4.7, BUN 32, creatinine 1.5 with a glucose of 97. Urinalysis is positive for 1+ protein, 1+ blood, with less than 10 microscopic red blood cells and white blood cells. Urine drug screen is positive for opiates, oxycodone, and amphetamines. CT of the head reveals no hemorrhage, no epidural or subdural hematoma, no subarachnoid hemorrhage, no hydrocephalus, no mass identified. Chest x-ray reveals no pneumonia. ASSESSMENT AND PLAN: 1. Leukocytosis. The patient denies any sickness. She denies any cough, fever, chills, any hematuria, dysuria. She states she has not felt sick over the past week. We will collect a urine and send a urinalysis. We will redraw CBC. We will not give antibiotics at present as there is no known source reported by the patient or seen. If a source or any symptoms recur, then we will start antibiotics as appropriate. 2. Hyponatremia. The patient states that she drinks a great amount of Pepsi daily as stated above in history of present illness, as well as other drinks. We did discuss diuretics and caffeine as a diuretic and her wasting sodium. She was greatly encouraged to decrease her oral intake. 3. Volume depletion. We will give intravenous fluids. 4. Hypertension. Will identify her home medications and continue as appropriate. 5. Multiple sclerosis. Aware. 6. Chronic narcotic use. We will identify her medications, and continue as appropriate. The patient is noted to take Vyvanse as well as armodafinil. These two are prescribed by two separate physicians, Dr. Flood and Dr. Gibson. As they are in the same family, we will hold these medications at present. The patient has been instructed that she needs to take only one of these. On her July admission, on discharge, this was discussed with her, and at that time, we had recommended that she hold these medications. Further treatments pending hospital course. Dictated by CHINTAN Conley for Dev Holcomb MD cc: CHINTAN Conley MD
[2016-09-01] MEDS: NS 1,000 ML IV SCH (18:13)
[2016-09-01] MEDS: MS CONTIN PO SCH (21:23)
[2016-09-01] MEDS: SOMA PO SCH (21:24)
[2016-09-02] MEDS: ATIVAN IV PRN (00:49)
[2016-09-02] MEDS: LIORESAL PO SCH ×4 (00:49→18:45)
[2016-09-02] MEDS: SYNTHROID PO SCH (06:14)
[2016-09-02] MEDS: PROTONIX PO SCH (06:14)
[2016-09-02] MEDS: XANAX PO SCH ×3 (06:14→21:01)
[2016-09-02] MEDS: NS 1,000 ML IV SCH ×2 (06:15→15:41)
[2016-09-02 06:58] LABS: HEMATOCRIT 30.7 % (37.0-47.0); HEMOGLOBIN 10.3 g/dL (12.0-16.0); MCH 27.8 PG (27-31); MCHC 33.6 g/dL (33-37); MCV 82.7 FL (81-99); MPV 9.2 FL (7.4-10.4); RBC 3.71 XMIL (4.2-5.4)
[2016-09-02 08:03] LABS: AGAP 12; BUN 9 mg/dL (8-22); CALCIUM 8.9 mg/dL (8.8-10.2); CHLORIDE 85 mmol/L (98-107); COSMO 244; POTASSIUM 3.7 mmol/L (3.5-5.1); SODIUM 122 mmol/L (136-145); TCO2 25 mmol/L (25-35)
[2016-09-02] MEDS ORDERED: AMLODIPINE BESYLATE PO SCH (09:00)
[2016-09-02] MEDS ORDERED: [UNRECOGNIZED DRUG - OTHER] PO SCH (09:00)
[2016-09-02] MEDS ORDERED: BENAZEPRIL PO SCH (09:00)
[2016-09-02] MEDS: PROZAC PO SCH (09:09)
[2016-09-02] MEDS: TRILEPTAL PO SCH ×2 (09:09→21:01)
[2016-09-02] MEDS: MS CONTIN PO SCH ×2 (09:09→21:00)
--- NOTE | 2016-09-02 14:27 | PROGRESS NOTE ---
DATE: 09/02/2016 SUBJECTIVE: The patient states that she may be feeling some better. She has less muscle spasms in all 4 extremities. She is standing, walking through the room with no difficulty in gait, and no noted muscle spasms to her arms during my examination. OBJECTIVE: Vital Signs: Blood pressure is 149/89, heart rate of 78, respirations 19, temperature 98.7 degrees oral, with room air saturations of 100%. Cardiovascular: Regular rate and rhythm. S1 and S2 appreciated. Pulmonary: Breath sounds are clear. No increased work of breathing noted. Gastrointestinal: Abdomen is soft, nontender, nondistended, with bowel sounds in all 4 quadrants. Extremities: No clubbing, cyanosis, or edema. Calves are nontender. Pulses are palpable x4. Musculoskeletal: Good range of motion of joints. Neurologic: She is alert and oriented x3. Cranial nerves 2-12 grossly intact. DIAGNOSTICS: WBC is 8.3 with a hemoglobin of 10.3, hematocrit 30.7, and platelets of 407,000. Sodium is 122, potassium 3.7, BUN 9, creatinine 0.3, with a glucose of 87. ASSESSMENT AND PLAN: 1. Hyponatremia. Patient's sodium has decreased despite IV fluids. We will discontinue her IV fluids, put her on fluid restriction, and get urine electrolytes. Once again , I did discuss with the patient the importance of decreasing her caffeine intake, as she does admit to drinking 4-5 two-liter Pepsis a day on a regular basis, and at the time of my examination she is drinking caffeinated Pepsi. 2. Leukocytosis. This is resolved. 3. Volume depletion. Resolved. 4. Hypertension. We will continue her home medications. 5. Multiple sclerosis. Aware. 6. Chronic narcotic use. We will continue her home regimen. Once again, we are holding the patient's Vyvanse as well as armodafinil. I did once again instruct the patient that she should not be taking these 2 medications at the same time, and they both are prescribed by separate physicians. She needs to have 1 physician prescribe these medications. Dictated by CHINTAN Conley for Dev Holcomb MD cc: CHINTAN Conley MD pt examined, agree with above [facility]
[2016-09-02] MEDS: NORVASC PO SCH (14:42)
[2016-09-02] MEDS: LOTENSIN PO SCH (14:42)
[2016-09-02] MEDS: NORCO-10 PO PRN (18:49)
[2016-09-02] MEDS: SOMA PO SCH (21:01)
[2016-09-02 21:10] LABS: AGAP 12; BUN 5 mg/dL (8-22); CALCIUM 8.8 mg/dL (8.8-10.2); CHLORIDE 90 mmol/L (98-107); COSMO 247; POTASSIUM 4.5 mmol/L (3.5-5.1); SODIUM 124 mmol/L (136-145); TCO2 23 mmol/L (25-35)
[2016-09-03] MEDS: LIORESAL PO SCH ×5 (00:11→17:56)
[2016-09-03] MEDS: ATIVAN IV PRN (01:26)
[2016-09-03] MEDS: NS 1,000 ML IV SCH ×2 (04:43→17:40)
[2016-09-03] MEDS: PROTONIX PO SCH (06:09)
[2016-09-03] MEDS: XANAX PO SCH ×3 (06:09→21:23)
[2016-09-03] MEDS: SYNTHROID PO SCH (06:09)
[2016-09-03 07:03] LABS: HEMATOCRIT 31.4 % (37.0-47.0); HEMOGLOBIN 10.4 g/dL (12.0-16.0); MCH 27.6 PG (27-31); MCHC 33.1 g/dL (33-37); MCV 83.3 FL (81-99); RBC 3.77 XMIL (4.2-5.4)
[2016-09-03 07:31] LABS: AGAP 10; BUN 5 mg/dL (8-22); CALCIUM 8.7 mg/dL (8.8-10.2); CHLORIDE 92 mmol/L (98-107); COSMO 252; POTASSIUM 4.3 mmol/L (3.5-5.1); SODIUM 127 mmol/L (136-145); TCO2 25 mmol/L (25-35)
[2016-09-03] MEDS: MS CONTIN PO SCH ×2 (09:02→21:22)
[2016-09-03] MEDS: NORVASC PO SCH (09:03)
[2016-09-03] MEDS: PROZAC PO SCH (09:03)
[2016-09-03] MEDS: TRILEPTAL PO SCH ×2 (09:03→21:22)
[2016-09-03] MEDS: LOTENSIN PO SCH (09:03)
--- NOTE | 2016-09-03 11:32 | PROGRESS NOTE ---
DATE: 09/03/2016 SUBJECTIVE: The patient is feeling better. She has no muscle spasms. She is walking through the room with no difficulty with her gait. OBJECTIVE: Vital Signs: Blood pressure is 142/90 with a heart rate of 64, respirations are 19, temperature is 97.9 degrees with room air saturations of 99% to 100%. Cardiovascular: Regular rate and rhythm. S1, S2 appreciated. Pulmonary: Breath sounds are clear with no increased work of breathing noted. Gastrointestinal: Abdomen is soft, nontender, nondistended with bowel sounds in all 4 quadrants. Extremities: No clubbing, cyanosis, or edema. Calves are nontender. Pulses are palpable x4. Musculoskeletal: Good range of motion of joints with no muscle spasms noted. Neurologic: She is alert and oriented x3. LABS: WBC is 8.38 with a hemoglobin of 10.4, hematocrit 31.4 and platelets of 365. Sodium 127, potassium 4.3, BUN 5, creatinine 0.2 with a glucose of 86. Blood cultures are pending. ASSESSMENT AND PLAN: 1. Hyponatremia. Sodium is up to 127 after a drop to 122. The patient was placed on a fluid restriction yesterday. The staff had been very diligent assuring that the patient did not have Pepsi or any caffeinated drinks. We will continue this. 2. Leukocytosis, resolved. 3. Volume depletion, resolved. 4. Hypertension. We will continue with her home medications. 5. Multiple sclerosis, aware. 6. Chronic narcotic use. We will continue with the current regimen. 7. Once again we will continue holding Vyvanse and Armodafinil. Dictated by CHINTAN Conley for Dev Holcomb MD cc: CHINTAN Conley MD pt examined, agree with above, urine sodium low, will continue to [facility]
[2016-09-03 15:02] LABS: AGAP 12; BUN 3 mg/dL (8-22); CALCIUM 8.4 mg/dL (8.8-10.2); CHLORIDE 92 mmol/L (98-107); COSMO 257; SODIUM 129 mmol/L (136-145); TCO2 26 mmol/L (25-35)
[2016-09-03] MEDS: SOMA PO SCH (21:23)
[2016-09-04] MEDS: LIORESAL PO SCH ×4 (01:09→23:35)
[2016-09-04] MEDS: ATIVAN IV PRN (03:49)
[2016-09-04] MEDS: XANAX PO SCH ×3 (06:22→23:35)
[2016-09-04] MEDS: NS 1,000 ML IV SCH ×2 (06:22→20:15)
[2016-09-04] MEDS: PROTONIX PO SCH (06:22)
[2016-09-04] MEDS: SYNTHROID PO SCH (06:22)
[2016-09-04 06:40] LABS: AGAP 10; BUN 5 mg/dL (8-22); CALCIUM 8.4 mg/dL (8.8-10.2); CHLORIDE 92 mmol/L (98-107); COSMO 254; POTASSIUM 4.4 mmol/L (3.5-5.1); SODIUM 128 mmol/L (136-145); TCO2 27 mmol/L (25-35)
[2016-09-04] MEDS: TRILEPTAL PO SCH ×2 (08:43→20:15)
[2016-09-04] MEDS: PROZAC PO SCH (08:43)
[2016-09-04] MEDS: NORVASC PO SCH (08:43)
[2016-09-04] MEDS: MS CONTIN PO SCH ×2 (08:43→20:15)
[2016-09-04] MEDS: LOTENSIN PO SCH (08:43)
[2016-09-04] MEDS ORDERED: SAMSCA PO ONE (10:14)
--- NOTE | 2016-09-04 10:23 | PROGRESS NOTE ---
DATE: 09/04/2016 SUBJECTIVE: The patient is feeling better today. She is having less muscle spasms. There are no spasms noted. She is sitting on the side of the bed eating. She denies any nausea, vomiting, or pain. OBJECTIVE: Vital Signs: Blood pressure is 146/96, heart rate of 83, respirations are 18, temperature is 97.9 degrees with room air saturations of 98% to 99%. Cardiovascular: Regular rate and rhythm. S1 and S2 appreciated. Pulmonary: Breath sounds are clear. No increased work of breathing noted. Gastrointestinal: The abdomen is soft, nontender, nondistended with bowel sounds in all 4 quadrants. Back: No CVAT. No spine tenderness. Musculoskeletal: Good range of motion of joints. Extremities: No clubbing, cyanosis, or edema. Calves are nontender. Pulses palpable x4. Neurologic: She is alert and oriented. DIAGNOSTICS: Sodium is 128, potassium 4.4, BUN 5, creatinine 0.2 with a glucose of 84. ASSESSMENT: 1. Hyponatremia. 2. Leukocytosis, resolved. 3. Volume depletion, resolved. 4. Hypertension. 5. Multiple sclerosis, aware. 6. Chronic necrotic use. PLAN: We will continue with her current regimen. Hopefully, the patient can go home in the next 1 to 2 days. Dictated by CHINTAN Conley for Dev Holcomb MD cc: CHINTAN Conley MD pt examined, slow improvement [facility]
[2016-09-04] MEDS: ZOFRAN IV PRN ×2 (10:54→20:21)
[2016-09-04 16:05] LABS: AGAP 10; BUN 4 mg/dL (8-22); CALCIUM 8.8 mg/dL (8.8-10.2); CHLORIDE 92 mmol/L (98-107); COSMO 256; SODIUM 129 mmol/L (136-145); TCO2 27 mmol/L (25-35)
[2016-09-04] MEDS: NORCO-10 PO PRN (17:57)
[2016-09-04] MEDS: SOMA PO SCH (20:15)
[2016-09-05] MEDS: ATIVAN IV PRN (00:41)
[2016-09-05] MEDS: ZOFRAN IV PRN (02:08)
[2016-09-05] MEDS: LIORESAL PO SCH (06:11)
[2016-09-05] MEDS: PROTONIX PO SCH (06:12)
[2016-09-05] MEDS: SYNTHROID PO SCH (06:12)
[2016-09-05 07:16] LABS: AGAP 8; BUN 4 mg/dL (8-22); CALCIUM 8.6 mg/dL (8.8-10.2); CHLORIDE 98 mmol/L (98-107); COSMO 261; POTASSIUM 3.8 mmol/L (3.5-5.1); SODIUM 132 mmol/L (136-145); TCO2 26 mmol/L (25-35)
[2016-09-05 07:39] VITALS: BP 142/105
[2016-09-05] MEDS: PROZAC PO SCH (09:07)
[2016-09-05] MEDS: TRILEPTAL PO SCH (09:07)
[2016-09-05] MEDS: LOTENSIN PO SCH (09:07)
[2016-09-05] MEDS: NORVASC PO SCH (09:07)
[2016-09-05] MEDS: MS CONTIN PO SCH (09:07)
[2016-09-05] MEDS: NS 1,000 ML IV SCH (11:03)
--- NOTE | 2016-09-05 16:01 | DISCHARGE SUMMARY ---
ADMISSION DATE: 09/01/2016 DISCHARGE DATE: 09/05/2016 DIAGNOSES: 1. Hyponatremia. 2. Hypokalemia. 3. Volume depletion, resolved. 4. Leukocytosis, resolved. 5. Hypertension. 6. History of multiple sclerosis. 7. Chronic narcotic use. DIAGNOSTICS: CT of the head on 09/01/[address] of the brain without contrast, with no hemorrhage, no epidural or subdural hematoma, no hydrocephalus, no mass identified per Radiology read. On 09/01/2016, chest x-ray revealed no pneumonia. Lungs are hyperexpanded. Heart is not enlarged. Pulmonary vessels are small. No infiltrates. Moderate scoliosis. Microbiology: Urine culture revealed no pathogenic growth. HOSPITAL COURSE: Ms. Escobedo presented to the emergency room complaining of muscle spasms in her arms and legs. She stated she had stopped her muscle relaxers and Xanax 3 days prior to being admitted, although she underwent a urine drug screen that returned with these present. She stated that she had taken them up until prior to coming to the emergency room. She was found to be hyponatremic with a sodium of 126, with a BUN of 32 and a creatinine of 1.5. She did state that she drinks 4 or 5 two-liter Pepsis a day on a regular basis. We held, of course , any caffeine. She was hydrated and, as she received hydration and her sodium increased, her muscle spasms resolved. We did discuss the importance of staying hydrated, the role caffeine plays in this, and the fact that she needs to drink decaffeinated drinks and supplement with water. Today, she has no muscle spasms. She has no complaints. She states she feels better than she has in quite some time. DISCHARGE PHYSICAL EXAMINATION: Cardiovascular: Regular rate and rhythm. S1 and S2 appreciated. Pulmonary: Breath sounds are clear, with no increased work of breathing noted. Gastrointestinal: Abdomen is soft, nontender, nondistended. Bowel sounds in all 4 quadrants. Back: No CVAT. No spine tenderness. Musculoskeletal: Good range of motion to joints. Neurologic : She is alert and oriented x3, with cranial nerves 2-12 grossly intact. Extremities: No clubbing, cyanosis, or edema. Calves are nontender. Pulses are palpable x4. DISCHARGE MEDICATIONS: Soma 350 at bedtime. Phenergan 1 tablet q.6 hours p.r.n. Protonix 40 mg daily. Trileptal 600 mg b.i.d. Lidocaine patch as directed. Synthroid 75 mcg daily. [place] 10/325 b.i.d. p.r.n. Prozac 40 mg daily. Diflucan 1 daily for the next 3 days. Baclofen 20 mg q.6 hours p.r.n. Xanax 0.5 three times a day, amlodipine/benazepril 10/40 one capsule daily. I did discuss with the patient that she should not be taking Vyvanse and Nuvigil at the same time. She did state that she takes these every other day or she alternates them somehow so that she can sleep at night. These are prescribed by 2 different physicians. I did discuss the importance of her having 1 physician prescribe these and monitor. DISCHARGE ACTIVITY: As tolerated. DISCHARGE VITAL SIGNS: Blood pressure is 150/90. Heart rate is 83. Respirations are 18. Temperature is 97.3 degrees oral with room air saturation 98%. FOLLOW UP: She needs to follow up with Dr. Flood and Dr. Gibson within the next 1-2 weeks. At that time, she will need to have a BMP drawn for her potassium and sodium recheck. She needs to follow up with An James, her primary care provider, in the next 1-2 weeks also. DISPOSITION: She is being discharged home in stable condition with family members. TIME SPENT: This is a greater than 30-minute discharge, from 9:30 to 10:05. Dictated by CHINTAN Conley for Dev Holcomb MD cc: CHINTAN Conley MD Kim Harbin, CRNP pt examined, agree with above [facility]
== END 2016-09-05 12:13 | disposition home or self-care (01) ==
LOC: P.ED 00:57 → P.MEDSURG 00:57 → OBSVTOIN 09:58
PROVIDERS: ATTEND Internal Medicine